=== PATIENT | female | born 1940 | race Caucasian/White ===

== ENCOUNTER 2018-06-22 10:40 | Inpatient (IN) ==
--- NOTE | 2018-06-22 11:07 | ED ---
HPI General Chief Complaint: Fall Stated Complaint: AMS Time Seen by Provider: 06/22/18 10:47 Source: patient and EMS Mode of arrival: EMS Limitations: other (dementia) History of Present Illness HPI Narrative: 78-year-old female had an unwitnessed fall and injured her right hip. She cannot give me details of the fall other than her hip hurts. Report by EMS was daughter was in other room heard her fall and came and checked on her and called them. She has a baby aspirin with her home medications but does not take other blood thinners. MD complaint: fall Onset (ago): minute(s) Fall witnessed: no Place fall occurred: home Loss of consciousness: unsure Prolonged down time: no Location of injury - extremities: Right: thigh Related Data Home Medications Medication Instructions Recorded Confirmed aspirin 81 mg PO DAILY 06/22/18 06/22/18 atorvastatin [Lipitor] 10 mg PO EVERY OTHER DAY 06/22/18 06/22/18 cholecalciferol (vitamin D3) 2,000 units PO QPM 06/22/18 06/22/18 [Vitamin D3] clopidogrel [Plavix] 75 mg PO DAILY 06/22/18 06/22/18 donepezil 10 mg PO QPM 06/22/18 06/22/18 gabapentin 300 mg PO TID 06/22/18 06/22/18 metoprolol tartrate 25 mg PO BID 06/22/18 06/22/18 ranitidine HCl [Zantac] 300 mg PO DAILY 06/22/18 06/22/18 Allergies Allergy/AdvReac Type Severity Reaction Status Date / Time No Allergy Information Allergy Unverified 06/22/18 10:51 Available Review of Systems ROS: all other systems reviewed are negative PMFSH History History Provided By: Patient and Retirement Consultant / EMT (dementia, hypertension) Medical History Medical History Dementia (Acute) History of deviated nasal septum (Acute) History of hysterectomy (Acute) History of thyroidectomy (Acute) Pacemaker (Acute) Surgical History Surgical History History of mitral valve replacement (Acute) Social History Social History Substance History: No History of Abuse Second Hand Smoke Exposure: No Smoking Status: Former smoker How Often Do You Have a Drink Containing Alcohol: Monthly or less Exam Narrative Exam Narrative: General: 78 y/o patient in no apparent distress Skin: warm and dry Eyes: pupils are equal, eomi ENT: no septal hematoma NECK: no pain with palpation in midline Cardiovascular: Regular rate and rhythm Respiratory: normal respiratory effort noted, clear to auscultation bilaterally Abdomen: soft, nontender, nondistended Extremities: Pain with palpation of right hip with roataion, no lacerations over , neurovascularly intact, no pain with palpation of other joints Neuro: awake, moves extremities, clear speech Course Reevaluation(s) Reevaluation #1: Daughters arrived at bedside and provided additional history. They state that she does not have a local orthopedic physician. They state that she has not taken any of her medications or had anything to eat or drink today. They state that they do not know how she fell they is heard her fall and came and checked on her. They were updated about hip fracture and agree to admission. Consultations Consultation #1: dr perez midlevel states will plan for surgery tommorrow morning Consultation #2: dr Borrero agrees to admit Initial Documented Vital Signs Pulse Rate 68 06/22/18 11:47 Pulse Oximetry 100 06/22/18 11:47 Last Documented Vital Signs Pulse Rate 68 06/22/18 11:47 Pulse Oximetry 100 06/22/18 11:47 Medical Decision Making MDM Narrative Medical decision making narrative: Fracture, strain, possible syncope Differential Diagnosis Differential Diagnosis: fracture, dislocation, anemia, electrolyte... Lab Data Lab results reviewed: Yes I reviewed the patient's lab results. Result diagrams: 06/22/18 11:36 06/22/18 11:36 Lab Results 06/22/18 06/22/18 06/22/18 Range/Units 11:36 11:36 11:36 WBC 8.6 (4.0-11.0) th/mm3 RBC 4.89 (4.00-5.30) mil/mm3 Hgb 13.6 (11.6-15.3) gm/dL Hct 40.4 (35.0-46.0) % MCV 82.5 (80.0-100.0) fL MCH 27.7 (27.0-34.0) pg MCHC 33.6 (32.0-36.0) % RDW 16.0 (11.6-17.2) % Plt Count 217 (150-450) th/mm3 MPV 8.6 (7.0-11.0) fL Neut % (Auto) 70.5 H (16.0-70.0) % Lymph % (Auto) 23.0 (9.0-44.0) % [place] % (Auto) 5.1 (0.0-8.0) % Eos % (Auto) 0.9 (0.0-4.0) % Baso % (Auto) 0.5 (0.0-2.0) % Neut # (Auto) 6.1 (1.8-7.7) th/mm3 Lymph # (Auto) 2.0 (1.0-4.8) th/mm3 [place] # (Auto) 0.4 (0.0-0.9) th/mm3 Eos # (Auto) 0.1 (0.0-0.4) th/mm3 Baso # (Auto) 0.0 (0.0-0.2) th/mm3 WBC Differential . Differential Comment Auto diff final PT 10.2 (9.8-11.6) sec INR 1.0 Ratio APTT 22.4 L (24.3-30.1) sec Sodium 141 (136-145) meq/L Potassium 4.0 (3.5-5.1) meq/L Chloride 107 (98-107) meq/L Carbon Dioxide 27.0 (21.0-32.0) meq/L Anion Gap 7 (5-15) meq/L BUN 24 H (7-18) mg/dL Creatinine 0.85 (0.50-1.00) mg/dL Estimated GFR 64 L (>89) mL/min Random Glucose 154 H (74-106) mg/dL Calcium 9.1 (8.5-10.1) mg/dL Total Bilirubin 0.4 (0.2-1.0) mg/dL AST 29 (15-37) U/L ALT 40 (10-53) U/L Alkaline Phosphatase 103 (45-117) U/L Total Protein 7.7 (6.4-8.2) g/dL Albumin 4.1 (3.4-5.0) g/dL Blood Type Blood Type Recheck Antibody Screen 06/22/18 Range/Units 11:36 WBC (4.0-11.0) th/mm3 RBC (4.00-5.30) mil/mm3 Hgb (11.6-15.3) gm/dL Hct (35.0-46.0) % MCV (80.0-100.0) fL MCH (27.0-34.0) pg MCHC (32.0-36.0) % RDW (11.6-17.2) % Plt Count (150-450) th/mm3 MPV (7.0-11.0) fL Neut % (Auto) (16.0-70.0) % Lymph % (Auto) (9.0-44.0) % [place] % (Auto) (0.0-8.0) % Eos % (Auto) (0.0-4.0) % Baso % (Auto) (0.0-2.0) % Neut # (Auto) (1.8-7.7) th/mm3 Lymph # (Auto) (1.0-4.8) th/mm3 [place]ett # (Auto) (0.0-0.9) th/mm3 Eos # (Auto) (0.0-0.4) th/mm3 Baso # (Auto) (0.0-0.2) th/mm3 WBC Differential Differential Comment PT (9.8-11.6) sec INR Ratio APTT (24.3-30.1) sec Sodium (136-145) meq/L Potassium (3.5-5.1) meq/L Chloride (98-107) meq/L Carbon Dioxide (21.0-32.0) meq/L Anion Gap (5-15) meq/L BUN (7-18) mg/dL Creatinine (0.50-1.00) mg/dL Estimated GFR (>89) mL/min Random Glucose (74-106) mg/dL Calcium (8.5-10.1) mg/dL Total Bilirubin (0.2-1.0) mg/dL AST (15-37) U/L ALT (10-53) U/L Alkaline Phosphatase (45-117) U/L Total Protein (6.4-8.2) g/dL Albumin (3.4-5.0) g/dL Blood Type O Positive Blood Type Recheck Required Antibody Screen Negative Imaging Data Attestation: I personally reviewed and interpreted this imaging study as follows : Radiologist's impression: Chest X-Ray 06/22/18 10:52 CONCLUSION: No acute cardiopulmonary disease demonstrated. Head CT 06/22/18 10:52 CONCLUSION: 1. No acute hemorrhage or mass effect. 2. Stable lucency involving the left frontal bone. The lack of change indicates benignity. . Hip X-Ray 06/22/18 10:52 CONCLUSION: Acute right femoral neck fracture with medial angulation deformity. Discharge Plan Discharge Disposition Patient Disposition: 30 Still Patient Discharge Condition Condition: Stable Discharge Details Diagnosis: Closed hip fracture Physicians Team ED Provider: Carlyn Blanco Primary Care Provider: UNKNOWN, Attending Provider: Aurora Borrero Other Providers: Ravin Perez Status ED Status: Admitted Patient
--- NOTE | 2018-06-22 11:22 | XR ---
EXAM DATE: 06/22/2018 11:19 AM EDT AGE/SEX: 78 years / Female INDICATIONS: Chest discomfort; fall today. CLINICAL DATA: This is the patient's initial encounter. Patient reports that signs and symptoms have been present for 1 day and indicates a pain score of 0/10. MEDICAL/SURGICAL HISTORY: Dementia. Unknown. Pacemaker. Unknown. COMPARISON: No prior exams available for comparison. FINDINGS: No infiltrate, effusion or pneumothorax demonstrated. No perceptible fracture. Normal heart size. Previous aortic valve replacement. Cardiac pacer present. CONCLUSION: No acute cardiopulmonary disease demonstrated. Electronically signed by: Sebas Orona MD 06/22/2018 11:21 AM EDT
--- NOTE | 2018-06-22 11:27 | XR ---
EXAM DATE: 06/22/2018 11:21 AM EDT AGE/SEX: 78 years / Female INDICATIONS: Right hip pain; fall today. CLINICAL DATA: This is the patient's initial encounter. Patient reports that signs and symptoms have been present for 1 day and indicates a pain score of 10/10. MEDICAL/SURGICAL HISTORY: Dementia. . ORIF left hip. COMPARISON: No prior exams available for comparison. FINDINGS: There is an acute supratrochanteric fracture of the right femoral neck. Moderate medial angulation de formity demonstrated. Right femoral head is intact. There are no subluxations. Bony pelvis is intact and has normal morphology. Previous nail fixation of left femoral neck fracture appears healed. There is mild left hip osteoarthritis. CONCLUSION: Acute right femoral neck fracture with medial angulation deformity. Electronically signed by: Sebas Orona MD 06/22/2018 11:26 AM EDT
[2018-06-22 12:15] LABS: Baso % (Auto) 0.5 % (0.0-2.0); Eos # (Auto) 0.1 th/mm3 (0.0-0.4); Eos % (Auto) 0.9 % (0.0-4.0); Hematocrit 40.4 % (35.0-46.0); Hemoglobin 13.6 gm/dL (11.6-15.3); Mean Corpuscular HGB Conc 33.6 % (32.0-36.0); Mean Corpuscular Hemoglobin 27.7 pg (27.0-34.0); Mean Corpuscular Volume 82.5 fL (80.0-100.0); Mean Platelet Volume 8.6 fL (7.0-11.0); Mono # (Auto) 0.4 th/mm3 (0.0-0.9); Mono % (Auto) 5.1 % (0.0-8.0); Neut # (Auto) 6.1 th/mm3 (1.8-7.7); Neut % (Auto) 70.5 % (16.0-70.0); Platelet Count 217 th/mm3 (150-450); Red Blood Count 4.89 mil/mm3 (4.00-5.30); White Blood Count 8.6 th/mm3 (4.0-11.0)
[2018-06-22 12:24] LABS: Activated Partial Thrombo Time 22.4 sec (24.3-30.1); Prothrombin Time 10.2 sec (9.8-11.6)
[2018-06-22 12:31] LABS: Alanine Aminotransferase 40 U/L (10-53); Albumin 4.1 g/dL (3.4-5.0); Anion Gap 7 meq/L (5-15); Aspartate Aminotransferase 29 U/L (15-37); Blood Urea Nitrogen 24 mg/dL (7-18); Calcium 9.1 mg/dL (8.5-10.1); Chloride 107 meq/L (98-107); Glomerular Filtration Rate 64 mL/min (>89); Glucose,Random 154 mg/dL (74-106); Sodium 141 meq/L (136-145)
[2018-06-22 12:33] LABS: Alkaline Phosphatase 103 U/L (45-117); Total Protein 7.7 g/dL (6.4-8.2)
--- NOTE | 2018-06-22 12:37 | CT ---
EXAM DATE: 06/22/2018 12:33 PM EDT AGE/SEX: 78 years / Female INDICATIONS: Fall today hit right hip CLINICAL DATA: This is the patient's initial encounter. Patient reports that signs and symptoms have been present for 1 day and indicates a pain score of 4/10. MEDICAL/SURGICAL HISTORY: Cardiovascular disease. Hysterectomy. Thyroidectomy. Pacemaker. Heart valve RADIATION DOSE: 35.05 CTDI (mGy) COMPARISON: [facility], CT BRAIN W/O CONTRAST, 08/29/2017. . TECHNIQUE: CT of the head without contrast. Using automated exposure control and adjustment of the mA and/or kV according to patient size, radiation dose was kept as low as reasonably achievable to ob tain optimal diagnostic quality images. DICOM format image data is available electronically for revi ew and comparison. FINDINGS: Cerebrum: The ventricles are normal for age. No evidence of midline shift, mass lesion, hemorrhage or acute infarction. No extraaxial fluid collections are seen. Posterior Fossa: The cerebellum and brainstem are intact. The 4th ventricle is midline. The cerebe llopontine angle is unremarkable. Extracranial: The visualized portion of the orbits is intact. Skull: The calvaria is stable in appearance. There is a small lucent defect again noted along the le ft frontal bone. No evidence of skull fracture. CONCLUSION: 1. No acute hemorrhage or mass effect. 2. Stable lucency involving the left frontal bone. The lack of change indicates benignity. . Electronically signed by: Alex Noyola MD 06/22/2018 12:35 PM EDT
[2018-06-22] MEDS ORDERED: Bisacodyl 10 MG Supp RECTAL PRN (13:16)
[2018-06-22] MEDS ORDERED: Acetaminophen 325 MG Tablet PO PRN ×2 (13:16→13:18)
[2018-06-22] MEDS ORDERED: Naloxone Inj 0.4 MG/ML Vial IV.PUSH PRN (13:18)
[2018-06-22] MEDS ORDERED: Morphine Inj 4 MG/ML Vial IV.PUSH PRN (13:18)
--- NOTE | 2018-06-22 14:59 | P.HPIM ---
History of Present Illness Primary Care Physician: UNKNOWN Chief Complaint: fall History of Present Illness: HPI Narrative: 78-year-old female had an unwitnessed fall and injured her right hip. She cannot give me details of the fall other than her hip hurts. Report by EMS was daughter was in other room heard her fall and came and checked on her and called them. She has a baby aspirin with her home medications but does not take other blood thinners. MD complaint: fall This is an 78-year-old female with history of osteoporosis, dementia, Paget's disease, status post aortic valve replacement 2 years ago with TAVR Plavix presenting to the emergency department after a fall. Per patient and patient's daughter, she was walking from the bathroom when she suddenly became dizzy, lightheaded and fell. She hit her head but did not lose any consciousness. Since then, her right hip has been hurting and she is unable to walk. ED workup revealed a right hip fracture. Family history: Noncontributory. Inpatient Certification: I certify that the inpatient services were ordered in accordance with Medicare regulations governing the order. This includes certification that hospital inpatient services are reasonable and necessary and in the case of services not specified as inpatient-only under 42 CFR 419.22(n), that they are appropriately provided as inpatient services in accordance to with the 2-midnight benchmark under 43 CFR 412.3(e) Estimated Total Length of Stay (Days): 3 Plans for Post Hospital Care: [facility] - History History Provided By: Patient, Animal Ride Attendant / EMT (dementia, hypertension) - Medical History Medical History: Medical History (Last Updated 06/22/18 @ 15:16 by Aurora Borrero MD) Dementia History of deviated nasal septum History of hysterectomy History of thyroidectomy Hypertension Pacemaker Paget disease of bone - Surgical History Surgical History: Surgical History (Last Updated 06/22/18 @ 15:15 by Aurora Borrero MD) History of mitral valve replacement S/P TAVR (transcatheter aortic valve replacement) - Tobacco History Second Hand Smoke Exposure: No Smoking Status: Former smoker - Alcohol History How Often Do You Have a Drink Containing Alcohol: Monthly or less - Substance Use History Substance History: No History of Abuse - Immunization History Tetanus Immunization: Never Vaccinated Hx Influenza Vaccine This Season: Yes Medications and Allergies Active Medications: Active Medications Acetaminophen (Tylenol) 650 mg PO Q4H PRN PRN Reason: Temp > 100.4 Acetaminophen (Tylenol) 650 mg PO Q6HR PRN PRN Reason: PAIN SCALE 1 TO 2 Hydrocodone Bitart/Acetaminophen ([place] 10/325) 1 tab PO Q4H PRN PRN Reason: PAIN SCALE 6 TO 10 Hydrocodone Bitart/Acetaminophen ([place] 5/325) 1 tab PO Q4H PRN PRN Reason: PAIN SCALE 3 TO 5 Al Hydroxide/Mg Hydroxide (Milk Of Magnesia Liq) 30 ml PO Q12H PRN PRN Reason: Mild Constipation Bisacodyl (Dulcolax Supp) 10 mg RECTAL DAILY PRN PRN Reason: SEVERE CONSITIPATION Lactulose (Lactulose Liq) 30 ml PO DAILY PRN PRN Reason: SEVERE CONSITIPATION Morphine Sulfate (Morphine Inj) 4 mg IV.PUSH Q3H PRN PRN Reason: BREAKTHROUGH PAIN Naloxone HCl (Narcan Inj) 0.4 mg IV.PUSH UNSCH PRN PRN Reason: SEE LABEL COMMENTS Ondansetron HCl (Zofran Inj) 4 mg IV.PUSH Q6H PRN PRN Reason: NAUSEA OR VOMITING Senna/Docusate Sodium (Jayleen-Colace) 1 tab PO BID CELINA Sennosides (Senokot) 17.2 mg PO Q12H PRN PRN Reason: Moderate Constipation Sodium Chloride (Ns Flush) 2 ml IV.FLUSH UNSCH PRN PRN Reason: FLUSH AFTER USING IV ACCESS Allergies Allergy/AdvReac Type Severity Reaction Status Date / Time No Known Allergies Allergy Unverified 06/22/18 15:04 Home Medications Medication Instructions Recorded Confirmed Type aspirin 81 mg PO DAILY 06/22/18 06/22/18 History atorvastatin [Lipitor] 10 mg PO EVERY OTHER DAY 06/22/18 06/22/18 History cholecalciferol (vitamin D3) 2,000 units PO QPM 06/22/18 06/22/18 History [Vitamin D3] clopidogrel [Plavix] 75 mg PO DAILY 06/22/18 06/22/18 History donepezil 10 mg PO QPM 06/22/18 06/22/18 History gabapentin 300 mg PO TID 06/22/18 06/22/18 History metoprolol tartrate 25 mg PO BID 06/22/18 06/22/18 History ranitidine HCl [Zantac] 300 mg PO DAILY 06/22/18 06/22/18 History Exam Vital signs: Vital Signs 06/22/18 11:47 Pulse Rate 68 Pulse Oximetry 100 Narrative: Not in distress, well-nourished, looks stated age PERRL, pink conjunctiva without injection, anicteric Nose without bleeding Supple neck Normal rate and regular rhythm, soft S1 and S2, no murmurs appreciated. Clear to auscultation and symmetric bilaterally, normal respiratory effort. Normal bowel sounds, soft, non-tender, nondistended, no guarding. Extremities without clubbing, cyanosis, or edema. No rash of generalized distribution. Skin is warm and dry. Pain with palpation of the right hip, no laceration, neurovascularly intact. alert, awake, oriented to place, person, no cranial nerve deficits, no neurologic deficits. Results - Labs CBC & Chem 7: 06/22/18 11:36 06/22/18 11:36 Labs: Short CBC 06/22/18 Range/Units 11:36 WBC 8.6 (4.0-11.0) th/mm3 Hgb 13.6 (11.6-15.3) gm/dL Hct 40.4 (35.0-46.0) % Plt Count 217 (150-450) th/mm3 BMP 06/22/18 11:36 Sodium 141 Potassium 4.0 Chloride 107 Carbon Dioxide 27.0 BUN 24 H Creatinine 0.85 Calcium 9.1 Liver Function 06/22/18 Range/Units 11:36 Total Bilirubin 0.4 (0.2-1.0) mg/dL AST 29 (15-37) U/L ALT 40 (10-53) U/L Alkaline Phosphatase 103 (45-117) U/L Albumin 4.1 (3.4-5.0) g/dL - Imaging Impressions Chest X-Ray 06/22/18 10:52 CONCLUSION: No acute cardiopulmonary disease demonstrated. Head CT 06/22/18 10:52 CONCLUSION: 1. No acute hemorrhage or mass effect. 2. Stable lucency involving the left frontal bone. The lack of change indicates benignity. . Hip X-Ray 06/22/18 10:52 CONCLUSION: Acute right femoral neck fracture with medial angulation deformity. Caprini VTE Risk Assessment Caprini VTE Risk Assessment: Moderate/High Risk (score >= 2) Caprini Risk Assessment Model: Point Value = 1 Point Value = 2 Point Value = 3 Point Value = 5 Age 41-60 Minor surgery BMI > 25 kg/m2 Swollen legs Varicose veins or History of unexplained or recurrent spontaneous Oral contraceptives or hormone replacement Sepsis (< 1 month) Serious lung disease, including pneumonia (< 1 month) Abnormal pulmonary function Acute myocardial infarction Congestive heart failure (< 1 month) History of inflammatory bowel disease Medical patient at bed rest Age 61-74 Arthroscopic surgery Major open surgery (> 45 min) Laparoscopic surgery (> 45 min) Malignancy Confined to bed (> 72 hours) Immobilizing plaster cast Central venous access Age >= 75 History of VTE Family history of VTE Factor V Leiden Prothrombin [id number] Lupus anticoagulant Anticardiolipin antibodies Elevated serum homocysteine Heparin-induced thrombocytopenia Other congenital or acquired thrombophilia Stroke (< 1 month) Elective arthroplasty Hip, pelvis, or leg fracture Acute spinal cord injury (< 1 month) Prophylaxis Regimen: Total Risk Factor Score Risk Level Prophylaxis Regimen 0-1 Low Early ambulation 2 Moderate Order ONE of the following: *Sequential Compression Device (SCD) *Heparin 5000 units SQ BID 3-4 Higher Order ONE of the following medications: *Heparin 5000 units SQ TID *Enoxaparin/Lovenox 40 mg SQ daily (WT < 150 kg, CrCl > 30 mL/min) *Enoxaparin/Lovenox 30 mg SQ daily (WT < 150 kg, CrCl > 10-29 mL/min) *Enoxaparin/Lovenox 30 mg SQ BID (WT < 150 kg, CrCl > 30 mL/min) AND/OR *Sequential Compression Device (SCD) 5 or more Highest Order ONE of the following medications: *Heparin 5000 units SQ TID (Preferred with Epidurals) *Enoxaparin/Lovenox 40 mg SQ daily (WT < 150 kg, CrCl > 30 mL/min) *Enoxaparin/Lovenox 30 mg SQ daily (WT < 150 kg, CrCl > 10-29 mL/min) *Enoxaparin/Lovenox 30 mg SQ BID (WT < 150 kg, CrCl > 30 mL/min) AND *Sequential Compression Device (SCD) Assessment and Plan - Plan This is an 78-year-old female with history of dementia, Paget's disease, status post Ta, presenting to the ED after a fall, found to have a right hip fracture Right hip fracture-hip x-ray showed right femoral neck fracture, continue pain control and bowel regimen, consult orthopedics, for surgery tomorrow, NPO at midnight Mechanical fall with lightheadedness-CT scan of the head unremarkable, start physical therapy after surgery. CBC and BMP unremarkable, check EKG, put on telemetry. Status post TAVR -hold Plavix/ASA for now, restart after surgery Hypertensive urgency-restart metoprolol, Vasotec as needed GERD-restart Zantac Dementia-restart donepezil DVT prophylaxis: Start prophylaxis after surgery Discussed with daughters
[2018-06-22] MEDS: Gabapentin 300 MG Capsule PO SCH (18:21)
[2018-06-22] MEDS: Metoprolol Tartrate 25 MG Tablet PO SCH (20:15)
[2018-06-22] MEDS: Famotidine 20 MG Tablet PO SCH (20:15)
[2018-06-22] MEDS: Senna/Docusate Sodium 8.6/50 MG Tablet PO SCH (20:16)
--- NOTE | 2018-06-22 21:40 | ECG ---
Date Performed: 06/22/2018 Time Performed: 11:28:33 PTAGE: 78 years EKG: ELECTRONIC ATRIAL PACEMAKER RIGHT BUNDLE BRANCH BLOCK ABNORMAL ECG NO PREVIOUS TRACING DOCTOR: Rosa Mauro Interpretating Date/Time 06/22/2018 21:39:38
[2018-06-23] MEDS ORDERED: Chlorhexidine Gluconate 2% 1 Pack (2 Cloths) TOPICAL SCH (02:45)
[2018-06-23] MEDS ORDERED: Metoprolol Tartrate 25 MG Tablet PO SCH (02:45)
[2018-06-23] MEDS ORDERED: Sodium Chlor 0.9% Inj 500 ML IV.SIG SCH (03:00)
[2018-06-23] MEDS: Metoprolol Tartrate 25 MG Tablet PO SCH ×3 (05:39→20:12)
[2018-06-23 06:14] LABS: Baso % (Auto) 0.3 % (0.0-2.0); Eos # (Auto) 0.1 th/mm3 (0.0-0.4); Eos % (Auto) 0.8 % (0.0-4.0); Hematocrit 36.7 % (35.0-46.0); Hemoglobin 12.7 gm/dL (11.6-15.3); Lymph # (Auto) 1.9 th/mm3 (1.0-4.8); Lymph % (Auto) 17.2 % (9.0-44.0); Mean Corpuscular HGB Conc 34.6 % (32.0-36.0); Mean Corpuscular Volume 80.8 fL (80.0-100.0); Mono # (Auto) 0.9 th/mm3 (0.0-0.9); Mono % (Auto) 8.2 % (0.0-8.0); Neut # (Auto) 8.2 th/mm3 (1.8-7.7); Neut % (Auto) 73.5 % (16.0-70.0); Platelet Count 243 th/mm3 (150-450); Red Blood Count 4.55 mil/mm3 (4.00-5.30); Red Cell Distribution Width 15.7 % (11.6-17.2); White Blood Count 11.1 th/mm3 (4.0-11.0)
[2018-06-23 06:18] LABS: Bacteria,Urine Rare /hpf; Bilirubin,Urine Negative (Negative); Clarity,Urine Hazy (Clear); Color,Urine Yellow (Yellw/Straw); Glucose,Urine (UA) 50 mg/dL (Negative); Hyaline Casts,Urine 3 /lpf (0-3); Leukocyte Esterase,Urine Small (Negative); Mucus,Urine Few /lpf (Occasional); Nitrite,Urine Negative (Negative); Specific Gravity,Urine 1.025 (1.002-1.035)
[2018-06-23 06:36] LABS: Calcium 8.7 mg/dL (8.5-10.1); Carbon Dioxide 27.4 meq/L (21.0-32.0); Potassium 3.9 meq/L (3.5-5.1)
--- NOTE | 2018-06-23 06:47 | P.PNOP ---
Subjective Interval history: patient confused. unable to tell me what happened to her. poor historian Physical Exam Vital signs: Vital Signs 06/22/18 11:47 06/22/18 14:53 06/22/18 15:05 Temperature Pulse Rate 68 67 Respiratory Rate 16 18 Blood Pressure 220/93 H Pulse Oximetry 100 99 06/22/18 16:00 06/22/18 19:29 06/22/18 20:00 Temperature 98.4 F Pulse Rate 73 70 Respiratory Rate 16 18 Blood Pressure 163/71 H 185/79 H Pulse Oximetry 97 95 95 06/22/18 20:16 06/23/18 00:00 06/23/18 00:15 Temperature 98.6 F Pulse Rate 67 78 69 Respiratory Rate 18 Blood Pressure 189/80 H Pulse Oximetry 95 06/23/18 04:00 Temperature 98.2 F Pulse Rate 65 Respiratory Rate 18 Blood Pressure 187/84 H Pulse Oximetry 95 Intake & Output 06/22/18 06/22/18 06/23/18 06:59 18:59 06:59 Intake Total 120 / 120 Output Total 700 / 700 Balance -580 / -580 Weight 58 kg Intake: Oral 120 / 120 Output: Urine 700 / 700 Other: Date of Last Bowel Movement 06/21/18 Weight On Admission 54.885 kg Narrative: RLE: pain in hip with motion. nvi - Urinary Catheter Management Indwelling Urethral Catheter Cath placed during this visit: no Reason for continuing: Other continuation reason Results - Labs CBC & Chem 7: 06/23/18 04:50 06/23/18 04:50 Laboratory Results - last 24 hr 06/22/18 06/22/18 06/22/18 11:36 11:36 11:36 WBC 8.6 RBC 4.89 Hgb 13.6 Hct 40.4 MCV 82.5 MCH 27.7 MCHC 33.6 RDW 16.0 Plt Count 217 MPV 8.6 Neut % (Auto) 70.5 H Lymph % (Auto) 23.0 [place] % (Auto) 5.1 Eos % (Auto) 0.9 Baso % (Auto) 0.5 Neut # (Auto) 6.1 Lymph # (Auto) 2.0 [place] # (Auto) 0.4 Eos # (Auto) 0.1 Baso # (Auto) 0.0 WBC Differential . Differential Comment Auto diff final PT 10.2 INR 1.0 APTT 22.4 L Sodium 141 Potassium 4.0 Chloride 107 Carbon Dioxide 27.0 Anion Gap 7 BUN 24 H Creatinine 0.85 Estimated GFR 64 L Random Glucose 154 H Calcium 9.1 Total Bilirubin 0.4 AST 29 ALT 40 Alkaline Phosphatase 103 Troponin I Total Protein 7.7 Albumin 4.1 Urine Color Urine Clarity Urine pH Ur Specific [place] Urine Protein Urine Glucose (UA) Urine Ketones Urine Occult Blood Urine Nitrate Urine Bilirubin Urine Urobilinogen Ur Leukocyte Esterase Urine RBC Urine WBC Urine Bacteria Hyaline Casts Urine Mucus Urine Yeast Micro UA Comment Urine Culture Comments Blood Type Blood Type Recheck Antibody Screen 06/22/18 06/22/18 06/23/18 11:36 17:44 04:50 WBC 11.1 H RBC 4.55 Hgb 12.7 Hct 36.7 MCV 80.8 MCH 28.0 MCHC 34.6 RDW 15.7 Plt Count 243 MPV 9.0 Neut % (Auto) 73.5 H Lymph % (Auto) 17.2 [place] % (Auto) 8.2 H Eos % (Auto) 0.8 Baso % (Auto) 0.3 Neut # (Auto) 8.2 H Lymph # (Auto) 1.9 [place] # (Auto) 0.9 Eos # (Auto) 0.1 Baso # (Auto) 0.0 WBC Differential . Differential Comment Auto diff final PT INR APTT Sodium Potassium Chloride Carbon Dioxide Anion Gap BUN Creatinine Estimated GFR Random Glucose Calcium Total Bilirubin AST ALT Alkaline Phosphatase Troponin I Less than 0.02 L Total Protein Albumin Urine Color Urine Clarity Urine pH Ur Specific [place] Urine Protein Urine Glucose (UA) Urine Ketones Urine Occult Blood Urine Nitrate Urine Bilirubin Urine Urobilinogen Ur Leukocyte Esterase Urine RBC Urine WBC Urine Bacteria Hyaline Casts Urine Mucus Urine Yeast Micro UA Comment Urine Culture Comments Blood Type O Positive Blood Type Recheck Required Antibody Screen Negative 06/23/18 06/23/18 04:50 05:45 WBC RBC Hgb Hct MCV MCH MCHC RDW Plt Count MPV Neut % (Auto) Lymph % (Auto) [place] % (Auto) Eos % (Auto) Baso % (Auto) Neut # (Auto) Lymph # (Auto) [place] # (Auto) Eos # (Auto) Baso # (Auto) WBC Differential Differential Comment PT INR APTT Sodium 139 Potassium 3.9 Chloride 105 Carbon Dioxide 27.4 Anion Gap 7 BUN 26 H Creatinine 0.78 Estimated GFR 71 L Random Glucose 159 H Calcium 8.7 Total Bilirubin AST ALT Alkaline Phosphatase Troponin I Total Protein Albumin Urine Color Yellow Urine Clarity Hazy H Urine pH 5.0 Ur Specific [place] 1.025 Urine Protein 30 H Urine Glucose (UA) 50 Urine Ketones Negative Urine Occult Blood Large H Urine Nitrate Negative Urine Bilirubin Negative Urine Urobilinogen Less than 2 Ur Leukocyte Esterase Small H Urine RBC Urine WBC 38 H Urine Bacteria Rare H Hyaline Casts 3 Urine Mucus Few H Urine Yeast Rare H Micro UA Comment Cath-culture ind Urine Culture Comments Cath-cult indicated Blood Type Blood Type Recheck Antibody Screen - Imaging Impressions Chest X-Ray 06/22/18 10:52 CONCLUSION: No acute cardiopulmonary disease demonstrated. Head CT 06/22/18 10:52 CONCLUSION: 1. No acute hemorrhage or mass effect. 2. Stable lucency involving the left frontal bone. The lack of change indicates benignity. . Hip X-Ray 06/22/18 10:52 CONCLUSION: Acute right femoral neck fracture with medial angulation deformity. Assessment and Plan - Assessment and Plan 1) right Femoral Neck Fx -npo -consents -surgery today with [facility] Prescription Drug Monitoring Database has been queried and verified prior to prescribing the controlled substance. Acute pain exception. This patient has normal, predicted, physiological, and time limited response to an adverse mechanical stimulus associated with surgery, trauma, or acute illness as described in my notes. There is a lack of alternative treatment options other than to include the prescribed narcotic treatment for this condition.
--- NOTE | 2018-06-23 07:12 | MB ---
cc: Ravin George MD DATE: 06/23/2018 REASON FOR ADMISSION: Right femoral neck fracture. HISTORY OF PRESENT ILLNESS: Candelaria is an 78-year-old female. She had an unwitnessed fall. She complains of right hip pain. She was unable to stand or ambulate. She lives with her daughter. She is currently awake on the orthopedic floor. She does have some dementia. She does not clearly recall the fall. Her pain is worse with movement and is improved with rest. She denies dizziness, syncope or loss of consciousness. PAST MEDICAL HISTORY: Illnesses, dementia, osteoporosis, Paget's of disease. PAST SURGICAL HISTORY: Aortic valve replacement, left hip ORIF, hysterectomy, thyroidectomy and pacemaker placement. MEDICATIONS: Include: 1. Aspirin. 2. Atorvastatin. 3. Vitamin D. 4. Plavix. 5. Donepezil. 6. Gabapentin. 7. Metoprolol. 8. Zantac. SOCIAL HISTORY: The patient denies alcohol, tobacco or drug use. She lives at home with her daughter. FAMILY HISTORY: Noncontributory. REVIEW OF SYSTEMS: Unobtainable secondary to dementia. LABORATORY DATA: The patient has a white blood cell count of 8.6, hematocrit of 40.4, platelet count of 217. INR 1.0. Potassium of 4.0 and creatinine 0.85. X-RAYS: X-rays of the right hip are reviewed. X-rays reveal a displaced right femoral neck fracture. There is diffuse osteopenia present. PHYSICAL EXAMINATION: GENERAL: The patient is a pleasant 78-year-old female. She is awake, but confused. She is in no acute distress. She appears well-developed and well-nourished. VITAL SIGNS: Temperature 98.4, pulse 70, respirations 18, blood pressure 185/79, O2 saturations 95% on room air. HEAD: The patient is normocephalic. EYES: Pupils are equal. NECK: Soft, nontender. The trachea is midline. ABDOMEN: Soft, nontender, nondistended. EXTREMITIES: Examination of the bilateral upper extremities reveals no significant pain with shoulder, elbow or wrist motion. She has intact sensation in all fingers. She has good cap refill in all fingers. Skin is intact. Radial pulses are palpable. Examination of the left leg reveals no pain with hip, knee or ankle motion. Skin is intact. Dorsalis pedis pulses palpable. Sensation is intact. Examination of right leg reveals pain with any hip motion. She has no tenderness around her knee, tibia or ankle. Skin is intact. Dorsalis pedis pulses palpable. Sensation is intact. IMPRESSION: 1. Osteoporosis. 2. Displaced right femoral neck fracture. 3. Dementia. PLAN: The treatment options were discussed with the patient, as well as her daughter via telephone. At this point, I would recommend a right hip hemiarthroplasty. The risks of surgery include bleeding, infection, injury to arteries, nerves or blood vessels hip dislocation, leg length discrepancies, as well as medical complications including blood clot, stroke, heart attack and . All questions were answered. I will plan on surgery today. Postoperatively, physical therapy will be consulted. She will be placed on appropriate DVT prophylaxis. She will be started on calcium and vitamin D. A mid-level provider in my office, nurse practitioner or PA, may see this patient on a follow-up basis and continue to implement the objective of this plan including: Starting or adjusting medications, injections of muscle, tendon, bursa or joints, cast application, orthotic or brace application, physical therapy, further radiographic studies including x-ray, MRI, CT, ultrasounds or bone scan, vascular studies, neurologic studies, or other specialist consultations, and proceeding with surgical management as appropriate. MD RAKAN Kaufman/WAYNE , 06:52 AM , 07:01 AM
[2018-06-23] MEDS ORDERED: Tranexamic Acid Inj 870 MG in Sodium Chlor 0.9% Inj 100 ML IV.SIG SCH (08:00)
--- NOTE | 2018-06-23 10:00 | ECHRPT ---
Indication: TAVR, EVAL FXN PRE SURGERY CONCLUSIONS The left ventricular systolic function is normal with an estimated ejection fraction in the range of 55-60%. Mild concentric left ventricular hypertrophy. Trace mitral valve regurgitation. History of TAVR, overall prosthesis appears to be functioning well, with mild elevation of gradients (mean grad 14) mild stenosis at the most. There is mild tricuspid valve regurgitation. The estimated pulmonary arterial pressure is 40 mmHg. Trivial pulmonary valve regurgitation. BP: / HR: Rhythm: MEASUREMENTS (Male / Female) Normal Values Technical Quality: 2D ECHO LV Diastolic Diameter PLAX 4.4 cm 4.2 - 5.9 / 3.9 - 5.3 cm LV Systolic Diameter PLAX 3.4 cm IVS Diastolic Thickness 1.0 cm 0.6 - 1.0 / 0.6 - 0.9 cm LVPW Diastolic Thickness 0.6 cm 0.6 - 1.0 / 0.6 - 0.9 cm LV Relative Wall Thickness 0.4 RV Internal Dim ED PLAX 1.9 cm DOPPLER AV Peak Velocity 257.0 cm/s AV Peak Gradient 26.4 mmHg AV Mean Gradient 13.5 mmHg AV Velocity Time Integral 71.5 cm LVOT Peak Velocity 135.0 cm/s LVOT Peak Gradient 7.3 mmHg LVOT Velocity Time Integral 35.0 cm Mitral E Point Velocity 106.0 cm/s Mitral A Point Velocity 106.0 cm/s Mitral E to A Ratio 1.0 TR Peak Velocity 276.0 cm/s TR Peak Gradient 30.5 mmHg Right Atrial Pressure 10.0 mmHg Pulmonary Artery Systolic Pressu 40.5 mmHg Right Ventricular Systolic Press 40.5 mmHg FINDINGS LEFT VENTRICLE Normal left ventricular size. Mild concentric left ventricular hypertrophy. The left ventricular systolic function is normal with an estimated ejection fraction in the range of 55-60%. RIGHT VENTRICLE A pacemaker wire is noted. The right ventricular size is normal. The right ventricular systoilc function is normal. LEFT ATRIUM The left atrial size is normal. RIGHT ATRIUM The right atrial size is normal. There is a pacemaker wire present in the right atrial cavity. ATRIAL SEPTUM Normal atrial septal thickness AORTA The aortic root and proximal ascending aorta are normal in size on limited imaging. MITRAL VALVE Moderate mitral annular calcification. No mitral valve stenosis. Trace mitral valve regurgitation. AORTIC VALVE History of TAVR, overall prosthesis appears to be functioning well, with mild elevation of gradients (mean grad 14) mild stenosis at the most TRICUSPID VALVE Grossly normal There is mild tricuspid valve regurgitation. No tricuspid valve stenosis. The estimated pulmonary arterial pressure is 40 mmHg. PULMONARY VALVE The pulmonary valve is not well visualized. Trivial pulmonary valve regurgitation. VESSELS The inferior vena cava is normal in size. PERICARDIUM No pericardial effusion. Stanley Gibson DO (Electronically Signed) Final Date:23 June 2018 09:59
[2018-06-23] MEDS ORDERED: Morphine Inj 4 MG/ML Vial IV.PUSH PRN (11:29)
[2018-06-23] MEDS ORDERED: Post-op Orders (for Pharmacy) OTHER STA (11:29)
--- NOTE | 2018-06-23 11:34 | P.OP ---
- Preoperative Diagnosis (1) Displaced fracture of right femoral neck Date of procedure: 06/23/18 Procedure: Right hip hemiarthroplasty Anesthesia: GETA Surgeon: Ravin Ty MD Twister Hand: PRABHU Mccray PA-C The surgical procedure was assisted by my physician certified medical technician assistant. My P.A. presence was necessary throughout this case for the manipulation and positioning of the surgical extremity. My P.A. was assisting me throughout the duration of this procedure. The skill set of a physician certified medical technician assistant was medically necessary to complete this procedure. During the surgical case the surgical pathologist was working at the back table and the physician certified medical technician assistant was directly assisting me. Operation and Findings: PLAN OF ACTIVITY Weight bear as tolerated. IMPLANTS USED DePuy cemented [place] size [7] stem with size [49] bipolar head and [49] neck. DETAILS OF PROCEDURE This patient was brought into the operating room and placed on the OR table. The patient was given anesthesia. The patient received IV antibiotics. The patient was then placed in lateral decubitus position. The hip and leg were prepped with alcohol, followed by Hibiclens and draped in a usual sterile fashion. Clean air was used for this procedure. Time out procedure was performed. The procedure began with a 5 inch incision over the posterolateral hip. The subcutaneous tissue was dissected with the Bovie. The iliotibial band were split in line with fibers. The Charnley retractor was placed. The piriformis and external rotators were released from the femur and tagged with a #1 Vicryl suture. The capsule is now incised and tagged with #1 Vicryl. The femoral neck fracturewas now visualized. A corkscrew was now used to remove the femoral head. The femoral head was sized and measured. Soft tissue was now protected. The hip skid was placed underneath the femoral neck. An oscillating saw was used to make a femoral neck cut. At this point attention was turned to preparation of the proximal femur. A box osteotome was used to remove the lateral cortex of the femoral neck. The T- handle reamer was used to open the femoral canal. The canal was now reamed. Next , the canal was broached up to appropriate size. A lateralizing reamer was used to help lateralize the prosthesis. At this point a trial head and neck were placed. The hip was reduced. The patient was found to have excellent stability with good range of motion. Trial components were removed. Soft tissue and bone were thoroughly irrigated. The summit stem was now opened. Cement was mixed with vancomycin powder. Cement was pressurized into the femoral canal. The stem was now placed into the proximal femur. Care was taken to keep appropriate anteversion. excess cement was removed. After cement was set, the head and neck were now impacted onto the stem. The hip was again reduced. The hip was found to have good range of motion and good stability. Leg lengths were clinically equal. The wound was thoroughly irrigated. The capsule, piriformis and iliotibial band were closed with #1 Vicryl. Subcutaneous tissue was closed with 3-0 Vicryl. The skin was closed with alyson. A sterile dressing was applied with Prim[place]. The patient was placed into a knee immobilizer. The patient was awakened and transferred to the recovery room in stable condition. Needle and sponge counts were correct.
[2018-06-23] MEDS ORDERED: Phenylephrine/NS 1000 MCG/10ML Syringe IV.PUSH ONE (12:00)
[2018-06-23] MEDS ORDERED: Lidocaine PF 1% Inj 5 ML Syringe INFILTRATN ONE (12:00)
[2018-06-23] MEDS ORDERED: fentaNYL Citrate Inj 100 MCG/2 ML Ampul ONE (13:08)
--- NOTE | 2018-06-23 13:52 | XR ---
EXAM DATE: 06/23/2018 1:46 PM EDT AGE/SEX: 78 years / Female INDICATIONS: Post operative for hip replacement, right side. CLINICAL DATA: This is the patient's initial encounter. Patient reports that signs and symptoms have been present for 1 day and indicates a pain score of Nonresponsive. MEDICAL/SURGICAL HISTORY: None. . Hip screws, left. COMPARISON: C, HIP RIGHT W AP PELVIS 2V, 06/22/2018. . FINDINGS: Post surgical changes following right hip replacement are noted. Acetabular and femoral components ar e well seated and satisfactorily aligned. Adjacent bony structures are intact without evidence of acute fracture. Left hip has undergone previous pinning. CONCLUSION: Satisfactory postoperative appearance of the right hip following hip replacement. Electronically signed by: Leandro Sims MD 06/23/2018 1:51 PM EDT
--- NOTE | 2018-06-23 14:55 | P.PNIM ---
Subjective Interval history: S> s/p surgery, pain controlled, no headache or dizziness, no sob, afebrile, no dysuria, she has frequent UTIs Physical Exam Vital signs: Vital Signs 06/22/18 15:05 06/22/18 16:00 06/22/18 19:29 Temperature Pulse Rate 73 Respiratory Rate 18 16 Blood Pressure 163/71 H Pulse Oximetry 97 95 06/22/18 20:00 06/22/18 20:16 06/23/18 00:00 Temperature 98.4 F 98.6 F Pulse Rate 70 67 78 Respiratory Rate 18 18 Blood Pressure 185/79 H 189/80 H Pulse Oximetry 95 95 06/23/18 00:15 06/23/18 04:00 06/23/18 04:10 Temperature 98.2 F Pulse Rate 69 65 60 Respiratory Rate 18 Blood Pressure 187/84 H Pulse Oximetry 95 06/23/18 10:03 06/23/18 13:00 06/23/18 13:06 Temperature 97.4 F L Pulse Rate 60 70 Respiratory Rate 15 18 Blood Pressure 137/60 180/68 H Pulse Oximetry 95 100 06/23/18 13:15 06/23/18 13:30 06/23/18 13:45 Temperature Pulse Rate 62 62 61 Respiratory Rate 16 15 15 Blood Pressure 139/62 154/66 H 151/68 H Pulse Oximetry 98 06/23/18 14:00 06/23/18 14:20 Temperature 97.6 F Pulse Rate 62 60 Respiratory Rate 16 15 Blood Pressure 157/70 H 155/67 H Pulse Oximetry 96 Intake & Output 06/22/18 06/23/18 06/23/18 18:59 06:59 18:59 Intake Total 120 / 120 850 / 850 Output Total 700 / 700 680 / 680 Balance -580 / -580 170 / 170 Weight 58 kg Intake: IV 850 / 850 LR 1000 mL Inj 1,000 ML @ 30 850 / 850 mls/hr IV.SIG .Q24H [facility] Rx#: [id number] Oral 120 / 120 Output: Urine 700 / 700 Estimated Blood Loss 80 / 80 Urine Amount (Catheter) 600 / 600 Indwelling Urethral Catheter 600 / 600 Other: Date of Last Bowel Movement 06/21/18 Weight On Admission 54.885 kg Narrative: Not in distress, well-nourished, looks stated age Supple neck Normal rate and regular rhythm, soft S1 and S2, no murmurs appreciated. Clear to auscultation and symmetric bilaterally, normal respiratory effort. Normal bowel sounds, soft, non-tender, nondistended, no guarding. Extremities without clubbing, cyanosis, or edema. No rash of generalized distribution. Skin is warm and dry. R hip dressings in place. alert, awake, oriented to place, person, no cranial nerve deficits, no neurologic deficits. - Urinary Catheter Management Indwelling Urethral Catheter Cath placed during this visit: no Reason for continuing: Other continuation reason Results - Labs CBC & Chem 7: 06/23/18 04:50 06/23/18 04:50 Laboratory Results - last 24 hr 06/22/18 06/23/18 06/23/18 17:44 04:50 04:50 WBC 11.1 H RBC 4.55 Hgb 12.7 Hct 36.7 MCV 80.8 MCH 28.0 MCHC 34.6 RDW 15.7 Plt Count 243 MPV 9.0 Neut % (Auto) 73.5 H Lymph % (Auto) 17.2 [place] % (Auto) 8.2 H Eos % (Auto) 0.8 Baso % (Auto) 0.3 Neut # (Auto) 8.2 H Lymph # (Auto) 1.9 [place] # (Auto) 0.9 Eos # (Auto) 0.1 Baso # (Auto) 0.0 WBC Differential . Differential Comment Auto diff final Sodium 139 Potassium 3.9 Chloride 105 Carbon Dioxide 27.4 Anion Gap 7 BUN 26 H Creatinine 0.78 Estimated GFR 71 L Random Glucose 159 H Calcium 8.7 Troponin I Less than 0.02 L Urine Color Urine Clarity Urine pH Ur Specific [place] Urine Protein Urine Glucose (UA) Urine Ketones Urine Occult Blood Urine Nitrate Urine Bilirubin Urine Urobilinogen Ur Leukocyte Esterase Urine RBC Urine WBC Urine Bacteria Hyaline Casts Urine Mucus Urine Yeast Micro UA Comment Urine Culture Comments 06/23/18 05:45 WBC RBC Hgb Hct MCV MCH MCHC RDW Plt Count MPV Neut % (Auto) Lymph % (Auto) [place] % (Auto) Eos % (Auto) Baso % (Auto) Neut # (Auto) Lymph # (Auto) [place] # (Auto) Eos # (Auto) Baso # (Auto) WBC Differential Differential Comment Sodium Potassium Chloride Carbon Dioxide Anion Gap BUN Creatinine Estimated GFR Random Glucose Calcium Troponin I Urine Color Yellow Urine Clarity Hazy H Urine pH 5.0 Ur Specific [place] 1.025 Urine Protein 30 H Urine Glucose (UA) 50 Urine Ketones Negative Urine Occult Blood Large H Urine Nitrate Negative Urine Bilirubin Negative Urine Urobilinogen Less than 2 Ur Leukocyte Esterase Small H Urine RBC Urine WBC 38 H Urine Bacteria Rare H Hyaline Casts 3 Urine Mucus Few H Urine Yeast Rare H Micro UA Comment Cath-culture ind Urine Culture Comments Cath-cult indicated - Imaging Impressions Hip X-Ray 06/23/18 11:29 CONCLUSION: Satisfactory postoperative appearance of the right hip following hip replacement. Assessment and Plan - Plan This is an 78-year-old female with history of dementia, Paget's disease, status post Ta, presenting to the ED after a fall, found to have a right hip fracture Right hip fracture-hip x-ray showed right femoral neck fracture,s/p R hip hemiarthroplasty, continue pain control and bowel regimen Mechanical fall with lightheadedness-CT scan of the head unremarkable, start physical therapy after surgery. CBC and BMP unremarkable, trop negative ?UTI - UA positive, she had UTIs in the past and causes confusion, await UCx, start CTX Status post TAVR -restart Plavix/ASA Hypertensive urgency- cont metoprolol, Vasotec as needed GERD-cont Zantac Dementia-restart donepezil DVT prophylaxis: Start prophylaxis after surgery Discussed with daughters D/C SNF once cleared by Ortho
--- NOTE | 2018-06-23 15:39 | ECG ---
Date Performed: 06/22/2018 Time Performed: 20:28:44 PTAGE: 78 years EKG: Atrial paced rhythm. RIGHT BUNDLE BRANCH BLOCK ABNORMAL ECG PREVIOUS TRACING : 06/22/2018 11.28 DOCTOR: Darnell Porter Interpretating Date/Time 06/23/2018 15:39:02
[2018-06-23] MEDS: Gabapentin 300 MG Capsule PO SCH ×3 (17:48→17:49)
[2018-06-23] MEDS: Calcium/Vitamin D 250/125 MG Tablet PO SCH ×2 (17:48→17:49)
[2018-06-23] MEDS: Famotidine 20 MG Tablet PO SCH ×2 (17:53→20:12)
[2018-06-23] MEDS: Senna/Docusate Sodium 8.6/50 MG Tablet PO SCH ×2 (17:53→20:12)
[2018-06-23] MEDS: ceFAZolin Inj 2,000 MG in Sodium Chlor 0.9% Inj 80 ML IV.SIG SCH (21:29)
[2018-06-24] MEDS: ceFAZolin Inj 2,000 MG in Sodium Chlor 0.9% Inj 80 ML IV.SIG SCH ×2 (04:13→13:39)
[2018-06-24] MEDS: Levothyroxine 75 MCG Tablet PO SCH (06:01)
[2018-06-24 06:21] LABS: Hemoglobin 11.8 gm/dL (11.6-15.3)
--- NOTE | 2018-06-24 07:21 | P.PNOP ---
Subjective Interval history: POD 1 s/p right hip hemiarthroplasty Resting comfortably. Denies any pain. Physical Exam Vital signs: Vital Signs 06/23/18 10:03 06/23/18 13:00 06/23/18 13:06 Temperature 97.4 F L Pulse Rate 60 70 Respiratory Rate 15 18 Blood Pressure 137/60 180/68 H Pulse Oximetry 95 100 06/23/18 13:15 06/23/18 13:30 06/23/18 13:45 Temperature Pulse Rate 62 62 61 Respiratory Rate 16 15 15 Blood Pressure 139/62 154/66 H 151/68 H Pulse Oximetry 98 06/23/18 14:00 06/23/18 14:20 06/23/18 16:00 Temperature 97.6 F 98.2 F Pulse Rate 62 60 70 Respiratory Rate 16 15 20 Blood Pressure 157/70 H 155/67 H 148/60 H Pulse Oximetry 96 96 06/23/18 20:00 06/24/18 00:00 06/24/18 00:29 Temperature 98.3 F 97.8 F Pulse Rate 71 62 Respiratory Rate 18 18 17 Blood Pressure 135/67 137/72 Pulse Oximetry 95 94 L 06/24/18 04:00 Temperature 97.4 F L Pulse Rate 60 Respiratory Rate 18 Blood Pressure 135/61 Pulse Oximetry 94 L Intake & Output 06/23/18 06/24/18 06/24/18 18:59 06:59 18:59 Intake Total 1000 / 1000 650 / 650 Output Total 680 / 680 800 / 800 Balance 320 / 320 -150 / -150 Weight 58 kg Intake: IV 1000 / 1000 200 / 200 LR 1000 mL Inj 1,000 ML @ 30 1000 / 1000 mls/hr IV.SIG .Q24H [facility] Rx#: [id number] Ancef Inj 2,000 MG In NS Inj 80 200 / 200 ML @ 200 mls/hr IV.SIG Q8H [facility]INA Rx#:[id number] Oral 450 / 450 Output: Urine 600 / 600 Estimated Blood Loss 80 / 80 Urine Amount (Catheter) 600 / 600 200 / 200 Indwelling Urethral Catheter 600 / 600 200 / 200 Other: Date of Last Bowel Movement 06/21/18 Narrative: RLE: dressings clean and dry. intact. +CKS. NVI. strong dorsiflexion with minimal discomfort. - Urinary Catheter Management Indwelling Urethral Catheter Cath placed during this visit: yes, but has since been removed by the nurse Reason for continuing: Decision to DC catheter Removal date: 06/24/18 Removal time: 06:00 Results - Labs CBC & Chem 7: 06/24/18 04:18 06/23/18 04:50 Laboratory Results - last 24 hr 06/24/18 04:18 Hgb 11.8 Hct 34.0 L - Imaging Impressions Hip X-Ray 06/23/18 11:29 CONCLUSION: Satisfactory postoperative appearance of the right hip following hip replacement. Assessment and Plan - Assessment and Plan 1) right Femoral Neck Fx s/p right hip hemiarthroplasty -WBAT -posterior hip precautions -knee brace while in bed -maintain dressing x 6 days and begin daily dressing chagnes on POD 7 with primapore -maintain surgical mesh on incsision -DVT prophylaxis -CM for DC planning for SNF -follow up with [facility] or TE in 2 weeks [facility] Prescription Drug Monitoring Database has been queried and verified prior to prescribing the controlled substance. Acute pain exception. This patient has normal, predicted, physiological, and time limited response to an adverse mechanical stimulus associated with surgery, trauma, or acute illness as described in my notes. There is a lack of alternative treatment options other than to include the prescribed narcotic treatment for this condition.
--- NOTE | 2018-06-24 09:02 | P.PNIM ---
Subjective Interval history: No overnight events, denies any significant pain, mental status at baseline. No fever. Physical Exam Vital signs: Vital Signs 06/23/18 10:03 06/23/18 13:00 06/23/18 13:06 Temperature 97.4 F L Pulse Rate 60 70 Respiratory Rate 15 18 Blood Pressure 137/60 180/68 H Pulse Oximetry 95 100 06/23/18 13:15 06/23/18 13:30 06/23/18 13:45 Temperature Pulse Rate 62 62 61 Respiratory Rate 16 15 15 Blood Pressure 139/62 154/66 H 151/68 H Pulse Oximetry 98 06/23/18 14:00 06/23/18 14:20 06/23/18 16:00 Temperature 97.6 F 98.2 F Pulse Rate 62 60 70 Respiratory Rate 16 15 20 Blood Pressure 157/70 H 155/67 H 148/60 H Pulse Oximetry 96 96 06/23/18 20:00 06/24/18 00:00 06/24/18 00:29 Temperature 98.3 F 97.8 F Pulse Rate 71 62 Respiratory Rate 18 18 17 Blood Pressure 135/67 137/72 Pulse Oximetry 95 94 L 06/24/18 04:00 06/24/18 08:00 Temperature 97.4 F L 97.9 F Pulse Rate 60 Respiratory Rate 18 Blood Pressure 135/61 137/61 Pulse Oximetry 94 L 93 L Intake & Output 06/23/18 06/24/18 06/24/18 18:59 06:59 18:59 Intake Total 1000 / 1000 650 / 650 Output Total 680 / 680 800 / 800 Balance 320 / 320 -150 / -150 Weight 58 kg Intake: IV 1000 / 1000 200 / 200 LR 1000 mL Inj 1,000 ML @ 30 1000 / 1000 mls/hr IV.SIG .Q24H [facility] Rx#: [id number] Ancef Inj 2,000 MG In NS Inj 80 200 / 200 ML @ 200 mls/hr IV.SIG Q8H [facility] Rx#:[id number] Oral 450 / 450 Output: Urine 600 / 600 Estimated Blood Loss 80 / 80 Urine Amount (Catheter) 600 / 600 200 / 200 Indwelling Urethral Catheter 600 / 600 200 / 200 Other: Date of Last Bowel Movement 06/21/18 Narrative: Not in distress. Supple neck Normal rate and regular rhythm, soft S1 and S2, no murmurs appreciated. Clear to auscultation and symmetric bilaterally, normal respiratory effort. Normal bowel sounds, soft, non-tender, nondistended, no guarding. Extremities without clubbing, cyanosis, or edema. No rash of generalized distribution. Skin is warm and dry. R hip dressings in place. alert, awake, oriented to self, at baseline, no cranial nerve deficits, no neurologic deficits. - Urinary Catheter Management Indwelling Urethral Catheter Cath placed during this visit: yes, but has since been removed by the nurse Reason for continuing: Decision to DC catheter Removal date: 06/24/18 Removal time: 06:00 Results - Labs CBC & Chem 7: 06/24/18 04:18 06/23/18 04:50 Laboratory Results - last 24 hr 06/24/18 04:18 Hgb 11.8 Hct 34.0 L - Imaging Impressions Hip X-Ray 06/23/18 11:29 CONCLUSION: Satisfactory postoperative appearance of the right hip following hip replacement. Assessment and Plan - Plan This is an 78-year-old female with history of dementia, Paget's disease, status post Ta, presenting to the ED after a fall, found to have a right hip fracture Right hip fracture-hip x-ray showed right femoral neck fracture,s/p R hip hemiarthroplasty, continue pain control and bowel regimen Mechanical fall with lightheadedness-CT scan of the head unremarkable, start physical therapy after surgery. CBC and BMP unremarkable, trop negative ?UTI - UA positive, she had UTIs in the past and causes confusion, on ceftriaxone, switched to cefuroxime on discharge. Status post TAVR -restart Plavix/ASA Hypertensive urgency- cont metoprolol, Vasotec as needed GERD-cont Zantac Dementia-continue donepezil DVT prophylaxis: Start prophylaxis after surgery Discussed with daughters Cleared by orthopedics for discharge, WBAT, maintain dressings for 6 days then change in POD 7. Follow-up with orthopedics in 2 weeks.
[2018-06-24] MEDS: Senna/Docusate Sodium 8.6/50 MG Tablet PO SCH ×2 (09:05→20:20)
[2018-06-24] MEDS: Gabapentin 300 MG Capsule PO SCH ×3 (09:05→18:27)
[2018-06-24] MEDS: Metoprolol Tartrate 25 MG Tablet PO SCH ×2 (09:06→20:20)
[2018-06-24] MEDS: Calcium/Vitamin D 250/125 MG Tablet PO SCH ×3 (09:06→18:27)
[2018-06-24] MEDS: Famotidine 20 MG Tablet PO SCH ×2 (09:06→20:20)
[2018-06-24] MEDS: Enoxaparin Inj 30 MG/0.3 ML Syringe SQ SCH (13:39)
--- NOTE | 2018-06-24 13:56 | P.DS ---
Date of admission: 06/22/18 12:52 Primary care physician: UNKNOWN Brief History from admission: HPI Narrative: 78-year-old female had an unwitnessed fall and injured her right hip. She cannot give me details of the fall other than her hip hurts. Report by EMS was daughter was in other room heard her fall and came and checked on her and called them. She has a baby aspirin with her home medications but does not take other blood thinners. MD complaint: fall This is an 78-year-old female with history of osteoporosis, dementia, Paget's disease, status post aortic valve replacement 2 years ago with TAVR Plavix presenting to the emergency department after a fall. Per patient and patient's daughter, she was walking from the bathroom when she suddenly became dizzy, lightheaded and fell. She hit her head but did not lose any consciousness. Since then, her right hip has been hurting and she is unable to walk. ED workup revealed a right hip fracture. Family history: Noncontributory. DS: Diagnosis - Discharge Diagnosis (1) Closed hip fracture Status: Acute (2) Displaced fracture of right femoral neck Status: Acute DS: Medications - Discharge Medications Prescriptions: hydrocodone-acetaminophen [[place]] 1 tab PO Q4H #40 tab rivaroxaban [Xarelto] 10 mg PO DAILY #14 tab DS: Summary Hospital Course: This is an 78-year-old female with history of dementia, Paget's disease, status post Ta, presenting to the ED after a fall, found to have a right hip fracture. Orthopedics was consulted, patient went for right hip hemiarthroplasty, patient's hospital stay was uncomplicated. Her fall was mechanical. CT scan of the head was unremarkable. Patient also treated for possible UTI, urinalysis was positive, initially started on ceftriaxone switched to cefuroxime on discharge. Follow-up urine culture results. She will be discharged to rehab on anticoagulation. - Time Spent with Patient Total time spent providing and/or coordinating discharge services: Greater than 30 minutes - Quality: VTE Deep Vein Thrombosis/Pulmonary Embolism Present on Admission: No Exam Vital signs: Vital Signs 06/23/18 14:00 06/23/18 14:20 06/23/18 16:00 Temperature 97.6 F 98.2 F Pulse Rate 62 60 70 Respiratory Rate 16 15 20 Blood Pressure 157/70 H 155/67 H 148/60 H Pulse Oximetry 96 96 06/23/18 20:00 06/24/18 00:00 06/24/18 00:29 Temperature 98.3 F 97.8 F Pulse Rate 71 62 Respiratory Rate 18 18 17 Blood Pressure 135/67 137/72 Pulse Oximetry 95 94 L 06/24/18 04:00 06/24/18 08:00 06/24/18 12:00 Temperature 97.4 F L 97.9 F 97.8 F Pulse Rate 60 61 70 Respiratory Rate 18 20 Blood Pressure 135/61 137/61 141/62 H Pulse Oximetry 94 L 93 L 95 06/24/18 13:39 Temperature Pulse Rate Respiratory Rate 18 Blood Pressure Pulse Oximetry Intake & Output 06/23/18 06/24/18 06/24/18 18:59 06:59 18:59 Intake Total 1000 / 1000 650 / 650 Output Total 680 / 680 800 / 800 Balance 320 / 320 -150 / -150 Weight 58 kg Intake: IV 1000 / 1000 200 / 200 LR 1000 mL Inj 1,000 ML @ 30 1000 / 1000 mls/hr IV.SIG .Q24H [facility] Rx#: [id number] Ancef Inj 2,000 MG In NS Inj 80 200 / 200 ML @ 200 mls/hr IV.SIG Q8H [facility] Rx#:[id number] Oral 450 / 450 Output: Urine 600 / 600 Estimated Blood Loss 80 / 80 Urine Amount (Catheter) 600 / 600 200 / 200 Indwelling Urethral Catheter 600 / 600 200 / 200 Other: Date of Last Bowel Movement 06/21/18 06/21/18 Results Procedures completed during hospitalization: R hip hemiarthroplasty Labs on day of discharge: Labs from last 24 hours 06/24/18 06/23/18 04:18 14:48 Hgb 11.8 Hct 34.0 L Vit D 1,25-Dihydroxy Pending Preliminary micro results at discharge 06/23/18 05:45 Urine Culture - Preliminary Catheterized Urine No growth in 24 hours - Impressions ITS Impressions Chest X-Ray 06/22/18 10:52 CONCLUSION: No acute cardiopulmonary disease demonstrated. Head CT 06/22/18 10:52 CONCLUSION: 1. No acute hemorrhage or mass effect. 2. Stable lucency involving the left frontal bone. The lack of change indicates benignity. . Hip X-Ray 06/23/18 11:29 CONCLUSION: Satisfactory postoperative appearance of the right hip following hip replacement. Discharge Plan - Discharge Disposition Patient Disposition: 03 Discharge to SNF - Discharge Condition Condition: Stable - Discharge Order Discharge Orders: Discharge Order (Routine); Ordered 06/24/18 Ordered By: Aurora Borrero - Discharge Details Anticipated Discharge Date: 06/24/18 Discharge Comment: d/c once snf ready - Physicians Team Primary Care Provider: UNKNOWN, Attending Provider: Aurora Borrero Other Providers: Ravin Ty MD ; [place] ; [facility],Agency
[2018-06-25] MEDS: Levothyroxine 75 MCG Tablet PO SCH (07:20)
--- NOTE | 2018-06-25 09:46 | P.PNOP ---
Subjective Interval history: Patient resting comfortably. States her pain is well controlled at rest. She has been mobilizing with physical therapy. Physical Exam Vital signs: Vital Signs 06/24/18 12:00 06/24/18 13:39 06/24/18 16:00 Temperature 97.8 F 97.8 F Pulse Rate 70 76 Respiratory Rate 20 18 20 Blood Pressure 141/62 H 108/64 Pulse Oximetry 95 94 L 06/24/18 19:45 06/24/18 20:00 06/24/18 20:50 Temperature 97.9 F Pulse Rate 67 72 Respiratory Rate 16 18 Blood Pressure 131/60 Pulse Oximetry 92 L 06/24/18 22:37 06/25/18 00:00 06/25/18 01:00 Temperature 98.6 F Pulse Rate 77 78 Respiratory Rate 18 17 Blood Pressure 114/56 L Pulse Oximetry 94 L 06/25/18 01:49 06/25/18 03:25 06/25/18 03:54 Temperature Pulse Rate 64 Respiratory Rate 18 17 Blood Pressure Pulse Oximetry 06/25/18 04:00 06/25/18 06:11 06/25/18 08:00 Temperature 99.0 F 97.6 F Pulse Rate 82 75 Respiratory Rate 17 18 18 Blood Pressure 123/58 L 109/53 L Pulse Oximetry 93 L 94 L Intake & Output 06/24/18 06/25/18 06/25/18 18:59 06:59 18:59 Intake Total 890 / 890 Output Total 325 / 325 Balance 565 / 565 Weight 58 kg Intake: Oral 890 / 890 Output: Urine 325 / 325 Other: # Voids 4 3 Date of Last Bowel Movement 06/21/18 06/24/18 # Incontinent Bowel Movements 3 Narrative: Awake, alert, no acute distress Right lower extremity: Dressing in place without significant drainage. Knee immobilizer in place. Negative Homans. Patient appears neurovascularly intact distally. Brisk cap refill. - Urinary Catheter Management Indwelling Urethral Catheter Cath placed during this visit: yes, but has since been removed by the nurse Reason for continuing: Decision to DC catheter Removal date: 06/24/18 Removal time: 06:00 Results - Labs CBC & Chem 7: 06/24/18 04:18 06/23/18 04:50 Microbiology 06/23/18 05:45 Catheterized Urine Urine Culture - Preliminary No growth in 24 hours - Procedures R hip hemiarthroplasty Assessment and Plan - Assessment and Plan 1) right Femoral Neck Fx s/p right hip hemiarthroplasty -WBAT -posterior hip precautions -knee brace while in bed -maintain dressing x 6 days and begin daily dressing chagnes on POD 7 with prim[place] -maintain surgical mesh on incsision -DVT prophylaxis -CM for DC planning for SNF -follow up with [facility] or TE in 2 weeks [facility] Prescription Drug Monitoring Database has been queried and verified prior to prescribing the controlled substance. Acute pain exception. This patient has normal, predicted, physiological, and time limited response to an adverse mechanical stimulus associated with surgery, trauma, or acute illness as described in my notes. There is a lack of alternative treatment options other than to include the prescribed narcotic treatment for this condition.
[2018-06-25] MEDS: Senna/Docusate Sodium 8.6/50 MG Tablet PO SCH ×2 (10:07→21:28)
[2018-06-25] MEDS: Gabapentin 300 MG Capsule PO SCH ×3 (10:08→18:30)
[2018-06-25] MEDS: Calcium/Vitamin D 250/125 MG Tablet PO SCH ×3 (10:08→18:30)
[2018-06-25] MEDS: Metoprolol Tartrate 25 MG Tablet PO SCH ×2 (10:08→21:28)
[2018-06-25] MEDS: Famotidine 20 MG Tablet PO SCH ×2 (10:08→21:28)
--- NOTE | 2018-06-25 12:26 | P.PNIM ---
Subjective Interval history: Pt seen and examined for f/u R hip fracture. AFVSS. No acute events overnight. Pt has no complaints. Denies CP or SOB. Tolerating PO. Pain controlled. Physical Exam Vital signs: Vital Signs 06/24/18 13:39 06/24/18 16:00 06/24/18 19:45 Temperature 97.8 F Pulse Rate 76 67 Respiratory Rate 18 20 Blood Pressure 108/64 Pulse Oximetry 94 L 06/24/18 20:00 06/24/18 20:50 06/24/18 22:37 Temperature 97.9 F Pulse Rate 72 Respiratory Rate 16 18 18 Blood Pressure 131/60 Pulse Oximetry 92 L 06/25/18 00:00 06/25/18 01:00 06/25/18 01:49 Temperature 98.6 F Pulse Rate 77 78 Respiratory Rate 17 18 Blood Pressure 114/56 L Pulse Oximetry 94 L 06/25/18 03:25 06/25/18 03:54 06/25/18 04:00 Temperature 99.0 F Pulse Rate 64 82 Respiratory Rate 17 17 Blood Pressure 123/58 L Pulse Oximetry 93 L 06/25/18 06:11 06/25/18 08:00 Temperature 97.6 F Pulse Rate 75 Respiratory Rate 18 18 Blood Pressure 109/53 L Pulse Oximetry 94 L Intake & Output 06/24/18 06/25/18 06/25/18 18:59 06:59 18:59 Intake Total 890 / 890 100 / 100 Output Total 325 / 325 Balance 565 / 565 100 / 100 Weight 58 kg Intake: IV 100 / 100 Rocephin Inj 1,000 MG In NS Inj 100 / 100 100 ML @ 200 mls/hr IV.SIG Q24H [facility]ELINA Rx#:[id number] Oral 890 / 890 Output: Urine 325 / 325 Other: # Voids 4 3 Date of Last Bowel Movement 06/21/18 06/24/18 # Incontinent Bowel Movements 3 Narrative: GENERAL: Elderly female sitting up in chair in NAD. SKIN: Warm and dry. HEENT: AT/NC. Pinpoint pupils. MMM. HEART: RRR no m/r/g. LUNGS: CTAB without wheezes or crackles. ABDOMEN: +BS, soft, NT, ND. EXTREMITIES: No LE edema. R hip dressing in place. NEURO: Awake and alert. Flat affect. - Urinary Catheter Management Indwelling Urethral Catheter Cath placed during this visit: yes, but has since been removed by the nurse Reason for continuing: Decision to DC catheter Removal date: 06/24/18 Removal time: 06:00 Results - Labs CBC & Chem 7: 06/24/18 04:18 06/23/18 04:50 Microbiology 06/23/18 05:45 Catheterized Urine Urine Culture - Preliminary No growth in 24 hours - Procedures R hip hemiarthroplasty Assessment and Plan - Assessment (1) Closed hip fracture Code(s): S72.009A - Fracture of unspecified part of neck of unspecified femur, initial encounter for closed fracture Status: Acute (2) Displaced fracture of right femoral neck Code(s): S72.001A - Fracture of unspecified part of neck of right femur, initial encounter for closed fracture Status: Acute - Plan 78 YOWF with history of dementia, Paget's disease, aortic stenosis status post TAVR admitted 06/22 after a mechanical fall and sustaining a R hip fracture. 1. R hip fracture - XR showing right femoral neck fracture - Ortho consulted, s/p R hemiarthroplasty 06/23 - Cleared per ortho - PT working with patient - WBAT - Dressing changes per ortho - Rehab on discharge 2. S/P TAVR - Continue Plavix and ASA 3. GERD - Continue home antacid 4. Dementia - Continue donepezil 5. HTN - BPs labile - Stop IVF - Continue metoprolol - Clonidine PRN 6. UTI - U/A with small leukocyte esterase - Urine culture with no growth - Can D/C Rocephin DVT prophylaxis: Lovenox per ortho Discussed Condition With: Patient Discharge Planning: Clear for D/C, awaiting placement. CM assisting (1) Closed hip fracture Qualifiers: Encounter type: initial encounter Laterality: right Qualified Code(s): S72.001A - Fracture of unspecified part of neck of right femur, initial encounter for closed fracture
[2018-06-25] MEDS: Enoxaparin Inj 30 MG/0.3 ML Syringe SQ SCH (13:48)
[2018-06-26] MEDS: Levothyroxine 75 MCG Tablet PO SCH (05:42)
--- NOTE | 2018-06-26 06:30 | P.PNOP ---
Subjective Interval history: Resting comfortably with no new complaints Physical Exam Vital signs: Vital Signs 06/25/18 08:00 06/25/18 12:00 06/25/18 16:00 Temperature 97.6 F 99.0 F 98.6 F Pulse Rate 75 76 72 Respiratory Rate 18 18 18 Blood Pressure 109/53 L 144/64 H 182/76 H Pulse Oximetry 94 L 93 L 95 06/25/18 20:00 06/25/18 23:17 06/25/18 23:58 Temperature 97.7 F Pulse Rate 74 50 L Respiratory Rate 16 18 Blood Pressure 120/56 L Pulse Oximetry 94 L 06/26/18 00:00 06/26/18 00:37 06/26/18 02:30 Temperature 97.5 F L Pulse Rate 78 Respiratory Rate 16 18 17 Blood Pressure 113/64 Pulse Oximetry 96 06/26/18 04:00 Temperature 97.8 F Pulse Rate 70 Respiratory Rate 16 Blood Pressure 120/55 L Pulse Oximetry 95 Intake & Output 06/25/18 06/25/18 06/26/18 06:59 18:59 06:59 Intake Total 440 / 440 1000 / 1000 Balance 440 / 440 1000 / 1000 Weight 58 kg 58 kg Intake: IV 200 / 200 1000 / 1000 LR 1000 mL Inj 1,000 ML @ 30 1000 / 1000 mls/hr IV.SIG .Q24H [facility]ELINA Rx#: [id number] Rocephin Inj 1,000 MG In NS Inj 100 / 100 100 ML @ 200 mls/hr IV.SIG Q24H CELINA Rx#:[id number] Oral 240 / 240 Other: # Voids 3 3 4 Date of Last Bowel Movement 06/24/18 06/24/18 06/24/18 # Bowel Movements 1 Narrative: Right lower extremity is clean dry dressings intact. Knee immobilizer in place. Active dorsiflexion and plantarflexion of foot - Urinary Catheter Management Indwelling Urethral Catheter Cath placed during this visit: yes, but has since been removed by the nurse Reason for continuing: Decision to DC catheter Removal date: 06/24/18 Removal time: 06:00 Results - Labs CBC & Chem 7: 06/24/18 04:18 06/23/18 04:50 Microbiology 06/23/18 05:45 Catheterized Urine Urine Culture - Final No growth in 48 hours - Procedures R hip hemiarthroplasty Assessment and Plan - Assessment and Plan 1) right Femoral Neck Fx s/p right hip hemiarthroplasty POD 3 -WBAT -posterior hip precautions -knee brace while in bed -maintain dressing x 6 days and begin daily dressing changes on POD 7 with [place] -DVT prophylaxis -CM for DC planning for SNF -follow up with Ariel or TE in 2 weeks [facility] Prescription Drug Monitoring Database has been queried and verified prior to prescribing the controlled substance. Acute pain exception. This patient has normal, predicted, physiological, and time limited response to an adverse mechanical stimulus associated with surgery, trauma, or acute illness as described in my notes. There is a lack of alternative treatment options other than to include the prescribed narcotic treatment for this condition.
--- NOTE | 2018-06-26 10:11 | P.PNIM ---
Subjective Interval history: Seen and examined for f/u R hip fracture. AFVSS. Pt reports she is comfortable. No pain. Denies CP or SOB. Looking forward to being discharged. Physical Exam Vital signs: Vital Signs 06/25/18 12:00 06/25/18 16:00 06/25/18 20:00 Temperature 99.0 F 98.6 F 97.7 F Pulse Rate 76 72 74 Respiratory Rate 18 18 16 Blood Pressure 144/64 H 182/76 H 120/56 L Pulse Oximetry 93 L 95 94 L 06/25/18 23:17 06/25/18 23:58 06/26/18 00:00 Temperature 97.5 F L Pulse Rate 50 L 78 Respiratory Rate 18 16 Blood Pressure 113/64 Pulse Oximetry 96 06/26/18 00:37 06/26/18 02:30 06/26/18 04:00 Temperature 97.8 F Pulse Rate 70 Respiratory Rate 18 17 16 Blood Pressure 120/55 L Pulse Oximetry 95 06/26/18 08:00 Temperature 97.9 F Pulse Rate 67 Respiratory Rate 18 Blood Pressure 108/54 L Pulse Oximetry 99 Intake & Output 06/25/18 06/26/18 06/26/18 18:59 06:59 18:59 Intake Total 440 / 440 1000 / 1000 Balance 440 / 440 1000 / 1000 Weight 58 kg Intake: IV 200 / 200 1000 / 1000 LR 1000 mL Inj 1,000 ML @ 30 1000 / 1000 mls/hr IV.SIG .Q24H [facility] Rx#: [id number] Rocephin Inj 1,000 MG In NS Inj 100 / 100 100 ML @ 200 mls/hr IV.SIG Q24H [facility] Rx#:[id number] Oral 240 / 240 Other: # Voids 3 4 Date of Last Bowel Movement 06/24/18 06/24/18 # Bowel Movements 1 Narrative: GENERAL: Elderly, pleasant female laying in bed in NAD. SKIN: Warm and dry. HEENT: AT/NC. Pinpoint pupils. MMM. HEART: RRR no m/r/g. LUNGS: CTAB without wheezes or crackles. ABDOMEN: +BS, soft, NT, ND. EXTREMITIES: No LE edema. R hip dressing in place. Wiggles her toes and plantar - and dorsiflexes her feet. Sensation intact. NEURO: Awake and alert. - Urinary Catheter Management Indwelling Urethral Catheter Cath placed during this visit: yes, but has since been removed by the nurse Reason for continuing: Decision to DC catheter Removal date: 06/24/18 Removal time: 06:00 Results - Labs CBC & Chem 7: 06/24/18 04:18 06/23/18 04:50 Microbiology 06/23/18 05:45 Catheterized Urine Urine Culture - Final No growth in 48 hours - Procedures R hip hemiarthroplasty Assessment and Plan - Assessment (1) Closed hip fracture Code(s): S72.009A - Fracture of unspecified part of neck of unspecified femur, initial encounter for closed fracture Status: Acute (2) Displaced fracture of right femoral neck Code(s): S72.001A - Fracture of unspecified part of neck of right femur, initial encounter for closed fracture Status: Acute - Plan 78 YOWF with history of dementia, Paget's disease, aortic stenosis status post TAVR admitted 06/22 after a mechanical fall and sustaining a R hip fracture. 1. R hip fracture - XR showing right femoral neck fracture - Ortho consulted, s/p R hemiarthroplasty 06/23 - Cleared per ortho - PT working with patient - WBAT - Dressing changes per ortho - Rehab/SNF on discharge 2. S/P TAVR - Continue Plavix and ASA 3. GERD - Continue home antacid 4. Dementia - Continue donepezil 5. HTN - Stable - Continue metoprolol - Clonidine PRN 6. UTI - U/A with small leukocyte esterase - Urine culture with no growth - Can D/C Rocephin DVT prophylaxis: Lovenox per ortho Discharge Planning: Clear for D/C, awaiting placement. KAEL assisting. [id number] signed in the chart. (1) Closed hip fracture Qualifiers: Encounter type: initial encounter Laterality: right Qualified Code(s): S72.001A - Fracture of unspecified part of neck of right femur, initial encounter for closed fracture
[2018-06-26] MEDS: Gabapentin 300 MG Capsule PO SCH ×3 (10:50→18:18)
[2018-06-26] MEDS: Famotidine 20 MG Tablet PO SCH ×2 (10:51→20:30)
[2018-06-26] MEDS: Metoprolol Tartrate 25 MG Tablet PO SCH ×2 (10:51→20:30)
[2018-06-26] MEDS: Senna/Docusate Sodium 8.6/50 MG Tablet PO SCH ×2 (10:51→20:29)
[2018-06-26] MEDS: Calcium/Vitamin D 250/125 MG Tablet PO SCH ×3 (10:51→18:18)
[2018-06-26] MEDS: Enoxaparin Inj 30 MG/0.3 ML Syringe SQ SCH (15:16)
[2018-06-27] MEDS: Levothyroxine 75 MCG Tablet PO SCH (05:35)
[2018-06-27 09:22] VITALS: BP 120/66; PULSE 67; RESP 18; TEMP 97.8; O2SAT 96
[2018-06-27] MEDS: Metoprolol Tartrate 25 MG Tablet PO SCH (10:06)
[2018-06-27] MEDS: Gabapentin 300 MG Capsule PO SCH ×2 (10:06→12:18)
[2018-06-27] MEDS: Famotidine 20 MG Tablet PO SCH (10:06)
[2018-06-27] MEDS: Senna/Docusate Sodium 8.6/50 MG Tablet PO SCH (10:07)
[2018-06-27] MEDS: Calcium/Vitamin D 250/125 MG Tablet PO SCH ×2 (10:07→12:18)
--- NOTE | 2018-06-27 11:41 | P.PNIM ---
Subjective Interval history: Pain control. Ready to go to rehab. No other concerns. Physical Exam Vital signs: Vital Signs 06/26/18 12:00 06/26/18 16:00 06/26/18 20:00 Temperature 98.0 F 97.5 F L 97.9 F Pulse Rate 67 69 74 Respiratory Rate 18 18 15 Blood Pressure 131/64 118/56 L 121/58 L Pulse Oximetry 99 96 97 06/27/18 00:00 06/27/18 04:00 06/27/18 08:00 Temperature 98 F 98.2 F 97.8 F Pulse Rate 71 80 67 Respiratory Rate 17 15 18 Blood Pressure 109/53 L 104/54 L 120/66 Pulse Oximetry 93 L 97 96 Intake & Output 06/26/18 06/27/18 06/27/18 18:59 06:59 18:59 Weight 59.1 kg Other: # Voids 4 # Incontinent Voids 3 Date of Last Bowel Movement 06/26/18 06/26/18 06/26/18 # Bowel Movements 2 # Incontinent Bowel Movements 2 Narrative: GENERAL: Elderly, pleasant female laying in bed in NAD. HEART: Regular rate and rhythm LUNGS: CTAB without wheezes or crackles. ABDOMEN: +BS, soft, NT, ND. EXTREMITIES: No LE edema. R hip dressing in place. NEURO: Awake and alert. - Urinary Catheter Management Indwelling Urethral Catheter Cath placed during this visit: yes, but has since been removed by the nurse Reason for continuing: Decision to DC catheter Removal date: 06/24/18 Removal time: 06:00 Results - Labs CBC & Chem 7: 06/24/18 04:18 06/23/18 04:50 - Procedures R hip hemiarthroplasty Assessment and Plan - Assessment (1) Closed hip fracture Code(s): S72.009A - Fracture of unspecified part of neck of unspecified femur, initial encounter for closed fracture Status: Acute (2) Displaced fracture of right femoral neck Code(s): S72.001A - Fracture of unspecified part of neck of right femur, initial encounter for closed fracture Status: Acute - Plan 78 YOWF with history of dementia, Paget's disease, aortic stenosis status post TAVR admitted 06/22 after a mechanical fall and sustaining a R hip fracture. 1. R hip fracture - Ortho consulted, s/p R hemiarthroplasty 06/23 - Cleared per ortho for rehab - PT working with patient - WBAT - Dressing changes per ortho -Discharge to rehab/SNF today. 2. S/P TAVR - Continue Plavix and ASA 3. GERD - Continue home antacid 4. Dementia - Continue donepezil 5. HTN, chronic essential - Stable - Continue metoprolol - Clonidine PRN 6. UTI - U/A with small leukocyte esterase - Urine culture with no growth - Rocephin was discontinued yesterday DVT prophylaxis: Lovenox per ortho Discharge Planning: Discharge to [facility] facility today. (1) Closed hip fracture Qualifiers: Encounter type: initial encounter Laterality: right Qualified Code(s): S72.001A - Fracture of unspecified part of neck of right femur, initial encounter for closed fracture
[2018-06-27] MEDS: Enoxaparin Inj 30 MG/0.3 ML Syringe SQ SCH (12:18)
== END 2018-06-27 12:30 ==
LOC: NEPE 10:40 → NEDA 12:52 → N06 16:07
PROVIDERS: ADMIT Family Medicine; ATTEND Family Medicine